=== PATIENT | female | born 1990 | race Caucasian/White ===

== ENCOUNTER 2017-12-18 12:51 | Emergency (ER) | payer SELFPAY ==
[2017-12-18 17:02] LABS: URINE PH (Dip) POC 8.5 (5.0-8.5)
[2017-12-18 17:02] LABS: URINE BLOOD (Dip) POC 2+ (NEGATIVE); URINE GLUCOSE (Dip) POC Negative (NEGATIVE); URINE KETONES (Dip) POC Trace (NEGATIVE); URINE LEUKOCYTE EST (Dip) POC 1+ (NEGATIVE); URINE NITRITE (Dip) POC Negative (NEGATIVE); URINE TOTAL PROTEIN POC 2+ (NEGATIVE)
[2017-12-18] MEDS: ONDANSETRON (ODT) 4 MG TAB ODT (17:26)
[2017-12-18] MEDS: LIDOCAINE/MYLANTA 40 ML BTL PO (17:26)
== END 2017-12-18 17:39 | disposition home or self-care (01) ==
LOC: FTE 12:51
DX: R11.2 Nausea with vomiting, unspecified (principal); R10.13 Epigastric pain
CPT/HCPCS: 81003; 81025; 99283